=== PATIENT | male | born 2005 | race Caucasian/White ===

== ENCOUNTER 2024-06-12 21:02 | Inpatient (IN) ==
[2024-06-12] MEDS: LORazepam 1 MG TAB SL STA ×2 (21:28→22:19)
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
[2024-06-12 21:57] LABS: Basophils # (auto) 0.03 K/uL (0.00-0.20); Basophils % (auto) 0.3 %; Eosinophils # (auto) 0.01 K/uL (0.00-0.50); Eosinophils % (auto) 0.1 %; Hematocrit (blood only) 45.4 % (42.0-52.0); Hemoglobin 16.2 g/dl (14.0-18.0); Immature Granulocytes # (auto) 0.03 K/uL (0.01-0.20); Immature Granulocytes % (auto) 0.3 %; Lymphocytes # (auto) 1.46 K/uL (1.20-3.40); Lymphocytes % (auto) 13.4 %; Mean Corpuscular Hemoglobin 29.7 pg (25.0-34.0); Mean Corpuscular Hgb Conc 35.7 g/dL (32.0-36.0); Mean Corpuscular Volume 83.3 fL (80.0-100.0); Mean Platelet Volume 9.9 fL (9.4-12.4); Monocytes # (auto) 0.69 K/uL (0.11-0.59); Monocytes % (auto) 6.3 %; Neutrophils # (auto) 8.71 K/uL (1.40-6.50); Neutrophils % (auto) 79.6 %; Platelet Count 264 K/uL (130-400); RDW Coefficient of Variation 12.1 % (11.5-14.5); RDW Standard Deviation 36.8 fL (36.4-46.3); Red Blood Count 5.45 M/uL (4.70-6.10); White Blood Count 10.93 K/ul (4.8-10.8)
[2024-06-12 22:07] LABS: Amorphous Sediment Urine Present (None Prsent); Appearance Urine Turbid (Clear); Bacteria Urine Automated None Seen (None Seen); Bilirubin Urine Negative (Negative); Blood Urine Negative (Negative); Color Urine Dark Yellow; Epithelial Cell Urine Auto 0-2 /hpf (0-2); Glucose Urine UA Negative (Negative); Ketones Urine 2+ (Negative); Leukocyte Esterase Urine Trace (Negative); Mucus Urine Present (None Prsent); Nitrite Urine Negative (Negative); Protein Urine 1+ (Negative); RBC Urine Automated 0-2 /hpf (0-2); Urobilinogen Urine Negative (Negative); WBC Urine Automated 0-5 /hpf (0-5); pH Urine 6.5 (4.5-7.5)
[2024-06-12 22:14] LABS: Albumin Globulin Ratio 2.7 (0.9-2); Albumin Level 5.6 gm/dl (3.4-5.0); BUN Creatinine Ratio 19.2 (10-20); Bilirubin,Total 1.2 mg/dl (0.2-1.0); Calcium 10.3 mg/dl (8.6-10.3); Creatinine Clr Calc Pharmacy 98.5 ml/min; Globulin 2.1 gm/dl (2.5-4.0); Potassium 4.1 mmol/L (3.5-5.1); Total Protein 7.7 gm/dl (6.0-8.3)
[2024-06-12 22:28] LABS: Amphetamines+Metham, Urine Neg (Neg); Barbiturates, Urine Neg (Neg); Benzodiazepine, Urine Neg (Neg); Cocaine, Urine Neg (Neg); Fentanyl, Urine Neg (Neg); MDMA (Ecstacy), Urine Neg (Neg); Marijuana, Urine Pos (Neg); Methadone, Urine Neg (Neg); Opiate, Urine Neg (Neg); Phencyclidine, Urine Neg (Neg)
[2024-06-12 22:29] LABS: Acetaminophen < 3 ug/ml (10-30); Salicylate < 3.0 mg/dl (3.0-30)
[2024-06-12 22:30] LABS: Thyroid Stimulating Hormone 2.122 uIu/ml (0.300-4.500)
[2024-06-13] MEDS ORDERED: BISMUTH SUBSALICYLATE 262 MG CHEW PO PRN (01:32)
[2024-06-13] MEDS ORDERED: ACETAMINOPHEN 325 MG TAB PO PRN (01:32)
[2024-06-13] MEDS ORDERED: SODIUM CHLORIDE 0.65% NA SOLN 45 ML (OCEAN) PRN (01:32)
[2024-06-13] MEDS ORDERED: MAGNESIUM HYDROXIDE SUSP 30 ML UDC PO PRN (01:32)
[2024-06-13] MEDS ORDERED: ALUMINUM/MAGNESIUM SUSP 30 ML UDC PO PRN (01:32)
[2024-06-13] MEDS ORDERED: OLANZapine 5 MG TABLET PO PRN (01:56)
[2024-06-13 06:41] VITALS: RESP 16
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
[2024-06-13] MEDS: OLANZapine ZYDIS 5 MG ORALLY DIS. TAB PO PRN (10:25)
[2024-06-13] MEDS: FLUoxetine HCL 20 MG CAP PO SCH (16:06)
[2024-06-13] MEDS: hydrOXYzine HCl 25 MG TAB PO PRN (20:39)
[2024-06-14] MEDS: hydrOXYzine HCl 25 MG TAB PO PRN (09:22)
[2024-06-14] MEDS: ARIPiprazole 5 MG TAB PO SCH (10:45)
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
[2024-06-14] MEDS: NICOTINE 14 MG/24 HR PATCH TD SCH (11:52)
[2024-06-14] MEDS: NICOTINE POLACRILEX 2 MG GUM MT PRN (14:11)
[2024-06-14] MEDS: OLANZapine 5 MG TABLET PO PRN (20:18)
[2024-06-15 06:59] VITALS: O2SAT 98
[2024-06-15 07:34] LABS: Estimated Average Glucose 100 mg/dl; Hemoglobin A1C 5.1 % (4.5-5.6)
[2024-06-15 07:45] LABS: Chol HDL Ratio 3.4 (0-5)
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
[2024-06-15] MEDS: ARIPiprazole 5 MG TAB PO ONE (13:51)
[2024-06-15] MEDS: traZODone HCL 50 MG TAB PO SCH (21:07)
[2024-06-16] MEDS: ARIPiprazole 5 MG TAB PO SCH (08:41)
[2024-06-16] MEDS ORDERED: LORazepam 0.5 MG TAB PO PRN (11:44)
[2024-06-16] MEDS: LORazepam 1 MG TAB PO STA (12:00)
[2024-06-16] MEDS: LORazepam 0.5 MG TAB PO STA (12:16)
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
[2024-06-16] MEDS: LORazepam 0.5 MG TAB PO PRN (22:16)
[2024-06-17] MEDS: OLANZapine 5 MG TABLET PO PRN (02:02)
[2024-06-17 06:33] VITALS: BP 117/83; TEMP 97.9
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
[2024-06-17 09:15] VITALS: PULSE 83
[2024-06-18 09:17] LABS: Marijuana Quant, GCMS Urine 583 ng/mL (<5)
== END 2024-06-17 09:53 | disposition home or self-care (01) | DRG 880 ==
LOC: ED 21:02 → 3S 06-13 00:52 → SUATTDRO 06-13 00:52 → 3S 06-13 01:11